=== PATIENT | female | born 1935 | race Caucasian/White ===

== ENCOUNTER 2017-07-16 16:17 | Observation (INO) | payer MEDICARE, BC ==
[~2017-07-16] VITALS: Ht 157.5 cm; Wt 49.7 kg
[2017-07-16] MEDS ORDERED: NITROGLYCERIN OINT 2%, 1GM TP ONE ×2 (16:30→18:12)
[2017-07-16] MEDS ORDERED: SODIUM CHLORIDE FLUSH 10ML SYR IVF ONE (16:30)
[2017-07-16] MEDS ORDERED: EPIN0.3P3 IM (16:51)
[2017-07-16] MEDS ORDERED: ASPI-496 PO (16:51)
[2017-07-16] MEDS ORDERED: TRAM50TA2 PO (16:51)
[2017-07-16] MEDS ORDERED: DOCU100C33 PO (16:51)
[2017-07-16] MEDS ORDERED: ISOS30TA8 PO (16:51)
[2017-07-16] MEDS ORDERED: DIAZ2TAB3 PO (16:51)
[2017-07-16] MEDS ORDERED: LEVO75TA5 PO (16:51)
[2017-07-16] MEDS ORDERED: FURO-93 PO (16:51)
[2017-07-16] MEDS ORDERED: METO50TA82 PO (16:51)
[2017-07-16] MEDS ORDERED: ATOR40TA PO (16:51)
[2017-07-16] MEDS ORDERED: LACT10SO28 PO (16:51)
[2017-07-16] MEDS ORDERED: ACET-1600 PO (16:51)
[2017-07-16] MEDS ORDERED: NITR0.4T28 SL (16:51)
[2017-07-16] MEDS ORDERED: SENN-31 PO (16:51)
[2017-07-16 17:49] LABS: BASOPHILS # (AUTO) 0.03 x10^3/uL (0-0.1); BASOPHILS % (AUTO) 1 % (0-1); EOSINOPHILS # (AUTO) 0.29 x10^3/uL (0-0.4); EOSINOPHILS % (AUTO) 6 % (1-7); LYMPHOCYTES # (AUTO) 1.19 x10^3/uL (1-3.4); LYMPHOCYTES % (AUTO) 22 % (22-44); MD NO; MEAN CORPUSCULAR HEMOGLOBIN 30.6 pg (27.0-34.8); MEAN CORPUSCULAR HGB CONC 33.6 g/dL (32.4-35.8); MEAN PLATELET VOLUME 7.1 fL (7.4-10.4); MONOCYTES # (AUTO) 0.55 x10^3/uL (0.2-0.8); MONOCYTES % (AUTO) 10 % (2-9); NEUTROPHILS # (AUTO) 3.24 x10^3/uL (1.8-6.8); NEUTROPHILS % (AUTO) 61 % (42-75); PLATELET COUNT 199 x10^3/uL (130-400); RED BLOOD COUNT 5.26 x10^6/uL (3.82-5.3); RED CELL DISTRIBUTION WIDTH 13.5 % (9.6-15.2)
[2017-07-16 17:52] LABS: INTERNATIONAL NORMALIZED RATIO 0.95 (0.93-1.1); PROTHROMBIN TIME 9.9 Seconds (9.6-11.5)
[2017-07-16 17:54] LABS: ALBUMIN 4.2 g/dL (3.4-5.0); ANION GAP 8 mmol/L (5-15); CALCIUM 9.4 mg/dL (8.5-10.1); CHLORIDE 102 mmol/L (98-107); CREATININE 1.05 mg/dL (0.55-1.02)
[2017-07-16 17:57] LABS: TROPONIN I < 0.015 ng/mL (0.000-0.045)
[2017-07-16] MEDS ORDERED: OMNIPAQUE 350 MG/ML, 100ML BOTTLE ONE (20:12)
[2017-07-16] MEDS ORDERED: LACTULOSE 10 GM/15 ML UDC PO PRN (22:30)
[2017-07-16] MEDS ORDERED: NITROGLYCERIN 0.4 MG BOTTLE (25 TABS) SL PRN (22:30)
[2017-07-16] MEDS ORDERED: DOCUSATE 100 MG CAPSULE PO SCH (22:30)
[2017-07-16] MEDS ORDERED: hydrALAzine 20 MG/ML, 1ML IVPush PRN (22:30)
[2017-07-16] MEDS ORDERED: ATORVASTATIN 40 MG TABLET PO SCH (22:30)
[2017-07-16] MEDS ORDERED: ONDANSETRON ODT 4 MG PO PRN (22:30)
[2017-07-16] MEDS ORDERED: ENOXAPARIN 40 MG/0.4 ML SQ SCH (22:30)
[2017-07-16 22:32] VITALS: BP 167/85
[2017-07-16] MEDS ORDERED: RANI150T4 PO (22:55)
[2017-07-16] MEDS ORDERED: METO-93 PO (22:55)
[2017-07-16] MEDS: SODIUM CHLORIDE 0.9% 1,000 ML IV SCH (23:18)
[2017-07-16] MEDS ORDERED: VERA120T5 PO (23:40)
[2017-07-16 23:55] LABS: TROPONIN I < 0.015 ng/mL (0.000-0.045)
[2017-07-17 01:39] VITALS: BP 164/74
[2017-07-17 06:03] LABS: BASOPHILS # (AUTO) 0.02 x10^3/uL (0-0.1); BASOPHILS % (AUTO) 0 % (0-1); EOSINOPHILS # (AUTO) 0.31 x10^3/uL (0-0.4); EOSINOPHILS % (AUTO) 6 % (1-7); LYMPHOCYTES # (AUTO) 1.48 x10^3/uL (1-3.4); LYMPHOCYTES % (AUTO) 27 % (22-44); MD NO; MEAN CORPUSCULAR HEMOGLOBIN 30.4 pg (27.0-34.8); MEAN CORPUSCULAR HGB CONC 33.5 g/dL (32.4-35.8); MEAN CORPUSCULAR VOLUME 90.7 fL (80-100); MEAN PLATELET VOLUME 7.1 fL (7.4-10.4); MONOCYTES % (AUTO) 13 % (2-9); NEUTROPHILS # (AUTO) 3.09 x10^3/uL (1.8-6.8); NEUTROPHILS % (AUTO) 55 % (42-75); PLATELET COUNT 202 x10^3/uL (130-400); RED BLOOD COUNT 4.71 x10^6/uL (3.82-5.3); RED CELL DISTRIBUTION WIDTH 13.6 % (9.6-15.2)
[2017-07-17 06:09] LABS: CHLORIDE 106 mmol/L (98-107)
[2017-07-17 06:18] LABS: ANION GAP 8 mmol/L (5-15); CALCIUM 8.9 mg/dL (8.5-10.1); CREATININE 0.83 mg/dL (0.55-1.02); TROPONIN I < 0.015 ng/mL (0.000-0.045)
[2017-07-17 07:50] VITALS: BP 145/74
[2017-07-17] MEDS ORDERED: REGADENOSON 0.4 MG/5 ML SYRINGE ONE (08:31)
[2017-07-17] MEDS ORDERED: ASPIRIN 81 MG TABLET EC PO SCH (09:00)
[2017-07-17] MEDS ORDERED: LEVOTHYROXINE 75 MCG TABLET PO SCH (09:00)
[2017-07-17] MEDS ORDERED: DIAZEPAM 2 MG TABLET PO SCH (09:00)
[2017-07-17] MEDS ORDERED: ISOSORBIDE MONONITRATE ER 30 MG TABLET PO SCH (09:00)
[2017-07-17] MEDS ORDERED: SENNA/DOCUSATE TABLET PO SCH (09:00)
[2017-07-17] MEDS ORDERED: FUROSEMIDE 20 MG TABLET PO SCH (09:00)
[2017-07-17] MEDS ORDERED: METOPROLOL TARTRATE 50 MG TABLET PO SCH (09:00)
[2017-07-17] MEDS: SODIUM CHLORIDE 0.9% 1,000 ML IV SCH (11:22)
[2017-07-17] MEDS ORDERED: ASPI325T17 PO (13:05)
[2017-07-17 14:15] VITALS: BP 134/63
== END 2017-07-17 19:20 | disposition home or self-care (01) ==
LOC: ED 20:44 → EDIP 21:47 → INTOOBSV 21:47 → 5SO 22:33
PROVIDERS: ADMIT Internal Medicine; ATTEND Internal Medicine
DX: I25.110 Atherosclerotic heart disease of native coronary artery with unstable angina pectoris (principal); I16.0 Hypertensive urgency; N17.0 Acute kidney failure with tubular necrosis; I11.9 Hypertensive heart disease without heart failure; J84.10 Pulmonary fibrosis, unspecified; E78.5 Hyperlipidemia, unspecified; E78.00 Pure hypercholesterolemia, unspecified; I48.91 Unspecified atrial fibrillation; I25.2 Old myocardial infarction; M19.90 Unspecified osteoarthritis, unspecified site; Z95.1 Presence of aortocoronary bypass graft; Z95.5 Presence of coronary angioplasty implant and graft
CPT/HCPCS: 36415; 71045; 71275; 80048; 82040; 84484; 85025; 85610; 85730; 93005; 93306; 96360; 96361; 96372; 99285; G0378; J1650; J7030; Q9967; J2785